=== PATIENT | female | born 1965 | race Two or more races ===

== ENCOUNTER 2019-10-29 13:40 | Emergency (ER) | payer MEDICAID, OTHER ==
[~2019-10-29] VITALS: Ht 160 cm; Wt 63.5 kg
[2019-10-29 16:45] VITALS: BP 117/74
== END 2019-10-29 16:52 | disposition home or self-care (01) ==
LOC: ER 13:51
DX: M79.622 Pain in left upper arm (principal)
CPT/HCPCS: 73060

== ENCOUNTER 2020-01-23 14:55 | Emergency (ER) | payer MEDICAID ==
[~2020-01-23] VITALS: Ht 160 cm; Wt 68.0 kg
[2020-01-23 15:19] VITALS: BP 97/76
== END 2020-01-23 16:23 | disposition left against medical advice (07) ==
LOC: ER 14:55
DX: R51 Headache (principal); Z53.21 Procedure and treatment not carried out due to patient leaving prior to being seen by health care provider

== ENCOUNTER 2020-01-25 19:05 | Emergency (ER) | payer MEDICAID ==
[~2020-01-25] VITALS: Ht 160 cm; Wt 68.0 kg
[2020-01-25 20:20] LABS: Basophils # (auto) 0 10 ^3/uL (0-0.2); Basophils % (auto) 0.8 % (0.0-2.0); Eosinophils # (auto) 0 10 ^3/uL (0-0.8); Eosinophils % (auto) 0.7 % (0.0-7.0); Hematocrit 46.6 % (36.0-46.0); Hemoglobin 15.5 g/dL (12.2-16.2); Lymphocytes # (auto) 2.2 10 ^3/uL (0.4-5.4); Lymphocytes % (auto) 37.6 % (10.0-50.0); Mean Corpuscular Hemoglobin 29.4 pg (28.0-32.0); Mean Corpuscular Hgb Conc. 33.3 g/dL (32.0-36.0); Mean Corpuscular Volume 88.4 fL (80.0-100.0); Monocytes # (auto) 0.4 10 ^3/uL (0-1.3); Monocytes % (auto) 6.5 % (0.0-12.0); Neutrophils # (auto) 3.3 10 ^3/uL (1.6-8.6); Neutrophils % (auto) 54.4 % (37.0-80.0); Nucleated Red Blood Cells % 0.2 %; Platelet Count (auto) 226 10^3/uL (140-450); Red Blood Cells 5.27 10^6/uL (4.0-5.20)
[2020-01-25 20:24] LABS: Urine Blood Negative /uL (Negative); Urine Mucus FEW (None Seen); Urine Specific Gravity 1.024 (1.001-1.035); Urine WBC 22 /hpf (0 - 5)
[2020-01-25 20:32] LABS: Urine Bacteria MODERATE /hpf (None Seen)
[2020-01-25 20:40] LABS: Amphetamine Screen, Urine POSITIVE (NEGATIVE); Barbiturate Scree,Urine NEGATIVE (NEGATIVE); Benzodiazephine Screen, Urine NEGATIVE (NEGATIVE); Cannabinoid Screen, Urine NEGATIVE (NEGATIVE); Cocaine Screen, Urine NEGATIVE (NEGATIVE); Opiate Scree,Urine NEGATIVE (NEGATIVE); Phencyclidine Screen, Urine NEGATIVE (NEGATIVE)
[2020-01-25 20:40] LABS: Albumin 3.7 g/dL (3.4-5.0); BUN/Creatinine Ratio 16.9; Calcium 9.1 mg/dL (8.5-10.1); Potassium 3.4 mmol/L (3.5-5.1)
[2020-01-25 20:43] LABS: Bilirubin, Total 0.9 mg/dL (0.2-1.0); Total Protein 8.6 g/dL (6.4-8.2)
[2020-01-25] MEDS ORDERED: ONDANSETRON HCL 4 MG/2 ML VIAL IV ONE (22:30)
[2020-01-25] MEDS ORDERED: MORPHINE SULFATE 4 MG/ML SYR/VIAL IV ONE (22:30)
[2020-01-25 22:52] LABS: Amylase 128 U/L (25-115); Lipase 574 U/L (73-393)
[2020-01-26] VITALS: BP 95/76
== END 2020-01-26 01:55 | disposition home or self-care (01) ==
LOC: ER 19:05
DX: N20.0 Calculus of kidney (principal); E86.0 Dehydration; F19.90 Other psychoactive substance use, unspecified, uncomplicated
CPT/HCPCS: 36415; 74176; 80053; 80307; 81001; 82150; 83690; 85025; 96374; 96375; 99284; J2270; J2405